=== PATIENT | male | born 1980 | race Caucasian/White ===

== ENCOUNTER 2021-11-03 23:28 | Emergency (ER) | payer OTHER ==
[~2021-11-03] VITALS: Ht 185.4 cm; Wt 108.9 kg
--- NOTE | ~2021-11-03 | EKG ---
[facility] [address] [place], [place] [address] Draft EKG completed, results pending confirmation PATIENT NAME: JUAN DANIEL HAHN Electrocardiogram DATE OF : 78 PHYSICIAN: PRELIMINARY REPORT #: [id number] REPORT IS CONFIDENTIAL AND NOT TO BE RELEASED WITHOUT AUTHORIZATION
[~2021-11-03 23:28] MED LIST: ALBUTEROL2.5 MG/3 M INH; CELEXA40 MG PO; CEPHALEXIN500 MG PO; CRUTCH1 EACH MISC; DICLOFENAC SODI75 MG PO; HYDROCODON-ACE1 EA10 PO; IBUPROFEN800 MG PO; LEVAQUIN500 MG PO; NORCO 5-325 TA1 EACH PO; PREDNISONE20 MG PO; PROVENTIL HFA6.7 GM INH; TRAZODONE HCL150 MG PO
== END 2021-11-04 05:21 | disposition home or self-care (01) ==
LOC: ED 23:28
DX: R41.82 Altered mental status, unspecified (principal); F15.10 Other stimulant abuse, uncomplicated; R51.9 Headache, unspecified; M54.50 Low back pain, unspecified; Z88.0 Allergy status to penicillin
CPT/HCPCS: 36415; 51701; 70450; 71045; 72125; 72128; 72131; 80053; 81001; 85025; 93005; 93010; 99285-25; G0480; J2310; J7030